=== PATIENT | female | born 1960 | race Caucasian/White ===

== ENCOUNTER 2021-11-03 21:20 | Emergency (ER) | payer MEDICARE ==
[~2021-11-03] VITALS: Ht 160 cm; Wt 79.5 kg
[2021-11-03 21:26] VITALS: TEMP 97.9
[2021-11-03] MEDS ORDERED: ULTRAM 50MG TAB50 MG PO (23:34)
[2021-11-03 23:36] VITALS: BP 154/87; PULSE 91
== END 2021-11-03 23:39 | disposition home or self-care (01) ==
LOC: COL.ER 21:20
DX: S42.201A Unspecified fracture of upper end of right humerus, initial encounter for closed fracture (principal); I10 Essential (primary) hypertension; E11.9 Type 2 diabetes mellitus without complications; W10.9XXA Fall (on) (from) unspecified stairs and steps, initial encounter